=== PATIENT | female | born 1955 | race Caucasian/White ===

== ENCOUNTER 2020-01-20 05:49 | Day surgery (SDC) | payer MEDICARE ==
[2020-01-19 08:51] VITALS: BMI 53.1
[2020-01-20] MEDS ORDERED: Thrombin 5000 UNITS/5 ML VIAL ONE (06:34)
[2020-01-20 06:44] LABS: #Eosinphils 0.6 thou/uL (0.0-0.7); #Lymphocytes 2.5 thou/uL (1.20-3.40); #Monocytes 0.9 thou/uL (0.11-0.59); #Neutrophils 7.7 thou/uL (1.40-6.50); %Basophils 0.3 % (0.0-1.0); %Eosinophils 5.3 % (0.0-10.0); %Lymphocytes 21.6 % (21.0-51.0); %Monocytes 7.6 % (0.0-10.0); %Neutrophils 65.3 % (42.0-75.0); Hemoglobin 12.6 g/dL (12.0-16.0); Mean Corpuscular HGB CONC 30.8 g/dL (32.0-36.0); Mean Corpuscular Hemoglobin 24.6 pg (27.0-31.0); Mean Corpuscular Volume 79.8 fL (78.0-98.0); Mean Platelet Volume 9.2 fL (7.4-10.4); Platelet Count 297 thou/uL (130-400); RBC Distribution Width 20.2 % (11.5-14.5); Red Blood Cell (RBC) Count 5.12 mill/uL (4.20-5.40); White Blood Cell (WBC) Count 11.8 thou/uL (4.8-10.8)
[2020-01-20 06:53] LABS: Prothrombin Time 12.7 SEC (12.0-14.7)
[2020-01-20] MEDS ORDERED: Fentanyl 100 MCG/2 ML VIAL ONE ×5 (07:04→11:24)
[2020-01-20 07:05] LABS: Anion Gap 14 mmol/L (10-20); BUN (Urea Nitrogen) 23 mg/dL (9.8-20.1); Calc. Creatinine Clearance 127 mL/min (70-130); Calcium 8.9 mg/dL (7.8-10.44); Carbon Dioxide 27 mmol/L (23-31); Chloride 106 mmol/L (98-107); Estimated GFR-MDRD 57; Glucose 105 mg/dL (80-115); Potassium 4.6 mmol/L (3.5-5.1); Sodium 142 mmol/L (136-145)
[2020-01-20] MEDS ORDERED: HYDROmorphone 0.5 MG/0.5 ML SYRINGE ONE ×2 (07:05→11:40)
[2020-01-20] MEDS ORDERED: SUGAMMADEX SODIUM 500 MG/5 ML VIAL ONE (08:22)
--- NOTE | 2020-01-20 09:38 | OP ---
DATE OF PROCEDURE: 01/20/2020 LOCATION: OR 12. RADIO MACHINIST: Ju Carson PA-C. 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 PROCEDURES PERFORMED: L3-L4 laminectomy, partial facetectomy, and foraminotomies. DESCRIPTION OF PROCEDURE: After informed consent was obtained from the patient, the patient was brought to the OR. Proper patient, pause, and identification were carried out. She was placed under excellent general endotracheal anesthesia and positioned prone on the OR table. All appropriate points were padded. We identified the L3-L4 incision that would allow for approach to the L3-L4 segment. This area was sterilely cleansed, prepared, and draped. Proper patient, pause, and identification were carried out. The wound was then opened with a combination of sharp, monopolar, and blunt dissection. We exposed the L3 and L4 segments and we performed an L3-L4 laminectomy, partial facetectomy, and foraminotomies. Following localization film, there was no CSF leak. Copious irrigation occurred throughout as did maximizing hemostasis. The wound was then closed in anatomic layers following the sprinkle of vancomycin powder. The patient then emerged from anesthesia. Job ID: [id number]
[2020-01-20] MEDS ORDERED: tiZANidine HCl 4 MG TAB PO PRN (10:02)
[2020-01-20] MEDS ORDERED: HYDROcodone/Acetaminophen 7.5/325 mg Tablet PO PRN (10:02)
[2020-01-20] MEDS ORDERED: Mag-Al 1200 mg/1200 mg/30 ML UDCUP PO PRN (10:02)
[2020-01-20] MEDS ORDERED: traMADol HCl 50 MG TAB PO PRN (10:02)
[2020-01-20] MEDS ORDERED: Ondansetron PF 4 MG/2 ML Vial IVP PRN (10:02)
[2020-01-20] MEDS ORDERED: Milk Of Magnesia 30 ML UDCUP PO PRN (10:02)
[2020-01-20] MEDS ORDERED: Fleet Enema 133 ML BOT PR PRN (10:02)
[2020-01-20] MEDS ORDERED: Acetaminophen 325 MG TAB PO PRN (10:02)
[2020-01-20] MEDS ORDERED: Bisacodyl 10 MG SUPP PR PRN (10:02)
[2020-01-20] MEDS ORDERED: Lidocaine 1% PF 5 ML VIAL ONE (11:23)
[2020-01-20] MEDS ORDERED: Glycopyrrolate 0.2 MG/ML 5 ML SYRINGE ONE (11:23)
[2020-01-20] MEDS ORDERED: PROPOFOL 200 MG/20 ML VIAL ONE (11:23)
[2020-01-20] MEDS ORDERED: Ondansetron PF 4 MG/2 ML Vial ONE (11:23)
[2020-01-20] MEDS ORDERED: Rocuronium Bromide 10 MG/ML (10ML VIAL) ONE (11:23)
[2020-01-20] MEDS ORDERED: Dexamethasone 20 MG/5 ML VIAL ONE (11:23)
[2020-01-20] MEDS ORDERED: PHENYLEPHRINE-NS 100 MCG/ML 10 ML SYRINGE ONE (11:23)
[2020-01-20] MEDS ORDERED: EPHEDRINE 25 MG/5 ML SYRINGE ONE (11:23)
[2020-01-20] MEDS ORDERED: Ondansetron HCl/PF 4 MG/2 ML Vial IVP PRN (11:31)
[2020-01-20] MEDS ORDERED: Promethazine HCl 25 MG/ML VIAL IM/IV PRN (11:31)
[2020-01-20] MEDS ORDERED: HYDROmorphone 2 MG/ML VIAL SLOW IVP PRN (11:31)
[2020-01-20] MEDS ORDERED: Non-Formulary Medication 1 EACH PO PRN (11:31)
[2020-01-20] MEDS: Gabapentin 400 MG CAP PO SCH ×3 (13:19→20:35)
[2020-01-20] MEDS: HYDROcodone/Acetaminophen 7.5/325 mg Tablet PO PRN ×2 (13:19→17:44)
[2020-01-20] MEDS: CEFAZOLIN 2 GM in Premix Bag 1 BAG IVPB SCH ×2 (15:05→23:13)
[2020-01-20] MEDS: Sodium Chloride 0.9% 1,000 ML IV SCH (16:38)
--- NOTE | 2020-01-20 16:46 | EKG ---
Test Reason : PREOP Blood Pressure : / mmHG Vent. Rate : 070 BPM Atrial Rate : 070 BPM P-R Int : 190 ms QRS Dur : 088 ms QT Int : 414 ms P-R-T Axes : 052 006 050 degrees QTc Int : 447 ms Normal sinus rhythm Normal ECG When compared with ECG of 20-JAN-2020 06:49, (Unconfirmed) No significant change was found Confirmed by DR. Bran FENG ([id number]) on 01/20/2020 4:45:59 PM Referred By: BLAKE Confirmed By:DR. Bran FENG
[2020-01-20] MEDS: busPIRone HCl 5 MG TAB PO SCH (20:34)
[2020-01-20] MEDS ORDERED: Escitalopram Oxalate 20 mg Tablet PO SCH (21:00)
[2020-01-21] MEDS: Sodium Chloride 0.9% 1,000 ML IV SCH ×2 (03:07→14:30)
[2020-01-21] MEDS: HYDROcodone/Acetaminophen 7.5/325 mg Tablet PO PRN ×3 (03:52→13:30)
[2020-01-21] MEDS ORDERED: Levothyroxine Sodium 75 MCG TAB PO SCH (06:00)
[2020-01-21] MEDS: busPIRone HCl 5 MG TAB PO SCH (08:48)
[2020-01-21] MEDS: Gabapentin 400 MG CAP PO SCH ×2 (08:49→13:30)
[2020-01-21] MEDS ORDERED: Torsemide 100 MG TAB PO SCH (09:00)
[2020-01-21] MEDS ORDERED: Pioglitazone HCl 15 MG TAB PO SCH (09:00)
[2020-01-21] MEDS ORDERED: Oxybutynin 5 MG TAB PO SCH (09:00)
[2020-01-21] MEDS ORDERED: Glimepiride 4 MG TAB PO SCH (09:00)
[2020-01-21] MEDS ORDERED: Potassium Chloride 10 MEQ TAB PO SCH (09:00)
[2020-01-21] MEDS ORDERED: Amlodipine 5 mg/Benazepril 20 mg CAP PO SCH (09:00)
--- NOTE | 2020-01-21 11:36 | PRG ---
DATE OF SERVICE: 01/21/2020 Ms. Quiros is postoperative day #1 from L3-L4 laminectomy, partial facetectomy, and foraminotomy. She is doing very well. She is mobilizing and voiding on her own. She has excellent strength in her lower extremities and has had resolution in her leg pain. She is very pleased with how she is doing. We will plan for dismissal. Job ID: [id number]
[2020-01-21 15:02] VITALS: BP 109/72; TEMP 99.4
[2020-01-21] MEDS ORDERED: Atorvastatin Calcium 40 MG TAB PO SCH (21:00)
== END 2020-01-21 14:45 | disposition home or self-care (01) ==
LOC: SDC 05:49 → SURG A 12:18 → SDC 01-21 14:45
PROVIDERS: ATTEND Surgery
PROC: 01NB0ZZ Release Lumbar Nerve, Open Approach (ICD-10-PCS; principal; 2020-01-20)
DX: M48.061 Spinal stenosis, lumbar region without neurogenic claudication (principal); M54.16 Radiculopathy, lumbar region; I10 Essential (primary) hypertension; E78.5 Hyperlipidemia, unspecified; G47.30 Sleep apnea, unspecified; E03.9 Hypothyroidism, unspecified; F41.9 Anxiety disorder, unspecified; F32.9 Major depressive disorder, single episode, unspecified; Z79.82 Long term (current) use of aspirin; Z79.84 Long term (current) use of oral hypoglycemic drugs; Z79.899 Other long term (current) drug therapy; Z88.1 Allergy status to other antibiotic agents; Z88.2 Allergy status to sulfonamides; Z88.5 Allergy status to narcotic agent; Z88.8 Allergy status to other drugs, medicaments and biological substances
CPT/HCPCS: 36415; 36416; 76000; 80048; 85025; 85610; 85730; 93005; 93010; J0690; J1100; J1170; J2001; J2405; J2704; J3010; J3370; J3490